=== PATIENT | male | born 1975 | race Caucasian/White ===

== ENCOUNTER 2020-02-15 14:40 | Inpatient (IN) | payer BC ==
[~2020-02-15] VITALS: Ht 177.8 cm; Wt 99.0 kg
[2020-02-22] MEDS ORDERED: MIDAZOLAM 1 MG/ML, 2ML ONE (06:05)
[2020-02-22] MEDS ORDERED: FENTANYL PF 250 MCG/5ML ONE (06:05)
[2020-02-22] MEDS ORDERED: AMPH30TA2 PO (06:08)
[2020-02-22 06:11] VITALS: BP 154/93
[2020-02-22] MEDS ORDERED: CHLORHEXIDINE 15 ML UDC ONE (06:17)
[2020-02-22] MEDS ORDERED: VANCOMYCIN 1,000 MG ONE (06:22)
[2020-02-22] MEDS ORDERED: BACITRACIN 50,000 UNIT ONE (06:22)
[2020-02-22] MEDS ORDERED: EPINEPHRINE 1 MG/ML, 1ML ONE (06:22)
[2020-02-22] MEDS ORDERED: BUPIVACAINE/PF 0.5% ONE (06:22)
[2020-02-22] MEDS ORDERED: MEPERIDINE/PF 25MG/0.5ML IVPush PRN (06:30)
[2020-02-22] MEDS ORDERED: morphine SULFATE 10 MG/ML, 1ML IVPush PRN (06:30)
[2020-02-22] MEDS ORDERED: ACETAMINOPHEN 325 MG TABLET PO PRN ×2 (06:30→10:00)
[2020-02-22] MEDS ORDERED: LABETALOL 5MG/ML, 20ML IV PRN (06:30)
[2020-02-22] MEDS ORDERED: CHLORHEXIDINE 15 ML UDC MM ONE (06:30)
[2020-02-22] MEDS ORDERED: OXYcodone 5 MG/5 ML ORAL.SOL UDC PO PRN (06:30)
[2020-02-22] MEDS ORDERED: LACTATED RINGERS 1,000 ML IV SCH (06:30)
[2020-02-22] MEDS ORDERED: hydrALAzine 20 MG/ML, 1ML IV PRN (06:30)
[2020-02-22] MEDS ORDERED: HYDROmorphone 1 MG/ML, 1ML INJ IVPush PRN (06:30)
[2020-02-22] MEDS ORDERED: ONDANSETRON 2MG/ML, 2ML IVPush PRN ×2 (06:30→10:00)
[2020-02-22] MEDS ORDERED: CEFAZOLIN 1,000 MG ONE (07:33)
[2020-02-22] MEDS ORDERED: PROPOFOL 10 MG/ML, 20ML ONE (07:33)
[2020-02-22] MEDS ORDERED: GLYCOPYRROLATE 0.2MG/1ML, 5ML ONE (07:33)
[2020-02-22] MEDS ORDERED: NEOSTIGMINE 1 MG/ML, 10ML ONE (07:33)
[2020-02-22] MEDS ORDERED: ROCURONIUM 10MG/ML,5ML ONE (07:33)
[2020-02-22] MEDS ORDERED: FENTANYL PF 100 MCG/2ML ONE ×4 (07:55→10:31)
[2020-02-22] MEDS ORDERED: PROMETHAZINE 25 MG/ML, 1ML IM PRN (10:00)
[2020-02-22] MEDS ORDERED: DIPHENHYDRAMINE 50 MG/ML, 1ML IVPush PRN (10:00)
[2020-02-22] MEDS ORDERED: SENNA/DOCUSATE TABLET PO PRN (10:00)
[2020-02-22] MEDS ORDERED: PHARMACY MAY ADJ FOR RENAL FX MC PRN (10:00)
[2020-02-22] MEDS ORDERED: ENOXAPARIN 40 MG/0.4 ML SQ SCH (10:00)
[2020-02-22] MEDS ORDERED: MAGNESIUM HYDROXIDE 8%, 30ML UDC PO PRN (10:00)
[2020-02-22] MEDS ORDERED: BISACODYL 10 MG SUPP PR PRN (10:00)
[2020-02-22] MEDS ORDERED: METHOCARBAMOL 750 MG TABLET PO PRN (10:00)
[2020-02-22] MEDS: FENTANYL PF 100 MCG/2ML IV PRN ×3 (10:32→10:49)
[2020-02-22] MEDS ORDERED: ACETAMINOPHEN 650 MG/20.3 ML UDC ONE (10:42)
[2020-02-22] MEDS ORDERED: OXYcodone 5 MG/5 ML ORAL.SOL UDC ONE (10:42)
[2020-02-22] MEDS ORDERED: METHOCARBAMOL 1,000 MG in DEXTROSE 5% 100 ML IV ONE (11:00)
[2020-02-22] MEDS: SODIUM CHLORIDE FLUSH 10ML SYR IVF SCH ×2 (13:26→20:00)
[2020-02-22] MEDS: D5%-0.9% NACL+KCL 20MEQ 1,000 ML IV SCH (13:26)
[2020-02-22 14:15] VITALS: BP 119/70
[2020-02-22] MEDS: CEFAZOLIN PMX 1GM/50ML 50 ML IVPB SCH ×2 (15:45→23:09)
[2020-02-22] MEDS: HYDROcodone/APAP 5/325 TABLET PO PRN ×2 (15:46→20:00)
[2020-02-22] MEDS: AMPHETAMINE HOMEMEDPO SCH (19:45)
[2020-02-22] MEDS: DEXTROAMPHETAMINE HOMEMEDPO SCH (19:45)
[2020-02-22 19:54] VITALS: BP 138/86
[2020-02-22] MEDS: METHYLPHENIDATE 10 MG TABLET PO SCH (19:59)
[2020-02-23 00:03] VITALS: BP 130/76
[2020-02-23] MEDS: HYDROcodone/APAP 5/325 TABLET PO PRN (01:49)
[2020-02-23] MEDS: D5%-0.9% NACL+KCL 20MEQ 1,000 ML IV SCH ×3 (01:51→22:00)
[2020-02-23] MEDS: HYDROmorphone 1 MG/ML, 1ML INJ IVPush PRN ×3 (03:13→18:58)
[2020-02-23 06:07] LABS: CREATININE 0.96 mg/dL (0.7-1.3)
[2020-02-23] MEDS: ENOXAPARIN 40 MG/0.4 ML SQ SCH (06:07)
[2020-02-23] MEDS: HYDROcodone/APAP 10/325 MG TABLET PO PRN ×4 (06:24→21:51)
[2020-02-23 07:19] VITALS: BP 106/65
[2020-02-23] MEDS: METHYLPHENIDATE 10 MG TABLET PO SCH ×2 (08:25→21:23)
[2020-02-23] MEDS: AMPHETAMINE HOMEMEDPO SCH ×2 (08:25→21:00)
[2020-02-23] MEDS: DEXTROAMPHETAMINE HOMEMEDPO SCH ×2 (08:25→21:00)
[2020-02-23] MEDS: SODIUM CHLORIDE FLUSH 10ML SYR IVF SCH ×2 (08:26→21:24)
[2020-02-23] MEDS: DEXAMETHASONE 4 MG/ML, 1ML IV SCH ×3 (09:34→21:24)
[2020-02-23 13:15] VITALS: BP 151/86
[2020-02-23] MEDS: GABAPENTIN 300 MG CAPSULE PO SCH ×2 (15:29→21:23)
[2020-02-23 19:22] VITALS: BP 128/83
[2020-02-24 01:31] VITALS: BP 125/81
[2020-02-24] MEDS: ENOXAPARIN 40 MG/0.4 ML SQ SCH (05:45)
[2020-02-24] MEDS: HYDROcodone/APAP 10/325 MG TABLET PO PRN ×3 (05:45→13:16)
[2020-02-24 07:05] VITALS: BP 147/70
[2020-02-24] MEDS ORDERED: HYDR-3245 PO (07:32)
[2020-02-24] MEDS ORDERED: METH750T2 PO (07:32)
[2020-02-24] MEDS ORDERED: GABA300C PO (07:32)
[2020-02-24] MEDS: D5%-0.9% NACL+KCL 20MEQ 1,000 ML IV SCH (07:56)
[2020-02-24] MEDS: DEXTROAMPHETAMINE HOMEMEDPO SCH (07:57)
[2020-02-24] MEDS: AMPHETAMINE HOMEMEDPO SCH (07:57)
[2020-02-24] MEDS: SODIUM CHLORIDE FLUSH 10ML SYR IVF SCH (07:59)
[2020-02-24] MEDS: GABAPENTIN 300 MG CAPSULE PO SCH (07:59)
[2020-02-24] MEDS: METHYLPHENIDATE 10 MG TABLET PO SCH (07:59)
[2020-02-24 13:10] VITALS: BP 152/97
== END 2020-02-24 13:46 | disposition home or self-care (01) | DRG 455 ==
LOC: ORIP 02-22 05:36 → 4NE 02-22 11:28 → DCLOUNGE 02-24 13:40
PROVIDERS: ADMIT Neurological Surgery; ATTEND Neurological Surgery
PROC: 0SG0071 Fusion of Lumbar Vertebral Joint with Autologous Tissue Substitute, Posterior Approach, Posterior Column, Open Approach (ICD-10-PCS; 2020-02-22)
PROC: 0SB20ZZ Excision of Lumbar Vertebral Disc, Open Approach (ICD-10-PCS; 2020-02-22)
PROC: 01NB0ZZ Release Lumbar Nerve, Open Approach (ICD-10-PCS; 2020-02-22)
PROC: 0SG00AJ Fusion of Lumbar Vertebral Joint with Interbody Fusion Device, Posterior Approach, Anterior Column, Open Approach (ICD-10-PCS; principal; 2020-02-22 07:00)
DX: M48.061 Spinal stenosis, lumbar region without neurogenic claudication (principal); M51.16 Intervertebral disc disorders with radiculopathy, lumbar region; M43.16 Spondylolisthesis, lumbar region; Z20.828 Contact with and (suspected) exposure to other viral communicable diseases
CPT/HCPCS: 36415; 72100; S0020; 82565; 87635; C1713; C1776; G0378; J0171; J0690; J1100; J1170; J1650; J2250; J2704; J2710; J3010; J3370; C1763; J2800; J3480; J7120

== ENCOUNTER → 2020-02-21 | Outpatient (CLI) | payer BC ==
[~2020-02-21] MED LIST: AMPH30TA2 PO
== END | disposition home or self-care (01) ==
LOC: RAD 14:06
PROVIDERS: ATTEND Neurological Surgery
DX: M47.817 Spondylosis without myelopathy or radiculopathy, lumbosacral region (principal); M48.061 Spinal stenosis, lumbar region without neurogenic claudication; M51.36 Other intervertebral disc degeneration, lumbar region
CPT/HCPCS: 72131